=== PATIENT | female | born 1985 ===

== ENCOUNTER → 2020-09-19 | Outpatient (REF) ==
--- NOTE | 2020-09-20 06:22 | REPPI ---
INDICATION: DISABILITY DIAGNOSIS DETERMINATION COMPARISON: None. TECHNIQUE: Internal rotation, external rotation, and Y view. FINDINGS: Cortical irregularity and mild inferior spurring at the acromioclavicular joint is appreciated along with very subtle blunting to the glenoid rim. Subacromial space is decreased to 8.7 mm on external rotation. No periarticular calcifications or loose bodies. No acute fracture or dislocation.. IMPRESSION: Mild arthritic changes. <Electronically signed by Beto Cartagena > 09/20/20 0618
--- NOTE | 2020-09-20 06:23 | REPPI ---
INDICATION: DISABILITY DIAGNOSIS DETERMINATION COMPARISON: None. TECHNIQUE: AP, lateral, coned-down views of the lumbar spine. FINDINGS: Straightening of normal lordosis. No acute fracture/compression injury or subluxation. Early advanced degenerative changes at L5-S1 includes endplate sclerosis, marginal osteophytosis, and facet hypertrophy along with disc space narrowing. IMPRESSION: 1. Focal advanced degenerative changes at L5-S1. <Electronically signed by Beto Cartagena > 09/20/20 [id number]
== END ==
LOC: M PLAIMG 10:17
PROVIDERS: ATTEND Internal Medicine
DX: Z02.9 Encounter for administrative examinations, unspecified (principal)